=== PATIENT | female | born 1955 | race African-American/Black ===

== ENCOUNTER 2017-07-06 08:27 | Inpatient (IN) | payer MEDICAID ==
[~2017-07-06] VITALS: Ht 165.1 cm; Wt 106.6 kg
[~2017-07-06 08:27] MED LIST: ASPI81TA35 PO; HYDR25TA; METH500T PO; PRO AIR; TOPI25TA48 PO; TRAM50TA3; [UNRECOGNIZED DRUG - OTHER] PO
[2017-07-06 10:32] LABS: CLARITY URINE CLEAR (CLEAR); COLOR URINE YELLOW (YELLOW); GLUCOSE URINE NEGATIVE (NEGATIVE); KETONES URINE NEGATIVE (NEGATIVE); LEUKOCYTE ESTERASE URINE NEGATIVE (NEGATIVE); NITRITE URINE NEGATIVE (NEGATIVE); OCCULT BLOOD URINE NEGATIVE (NEGATIVE); PROTEIN URINE NEGATIVE (NEGATIVE); SPECIFIC GRAVITY URINE 1.016 (1.005-1.030)
[2017-07-06] MEDS ORDERED: CALC500T6 PO (10:49)
[2017-07-06] MEDS ORDERED: IBUP-2030 PO (10:49)
[2017-07-06] MEDS ORDERED: METF500T4 PO (10:49)
[2017-07-06] MEDS ORDERED: AMLO10TA80 PO (10:49)
[2017-07-06] MEDS ORDERED: [UNRECOGNIZED DRUG - OTHER] PO (10:49)
[2017-07-06] MEDS ORDERED: ATOR40TA70 PO (10:49)
[2017-07-06] MEDS ORDERED: ZET10 PO (10:49)
[2017-07-06] MEDS ORDERED: OMEP20TA15 PO (10:49)
[2017-07-06] MEDS: LACTATED RINGERS 1,000 ML IV SCH (11:10)
[2017-07-06] MEDS ORDERED: TRANEXAMIC ACID 1,000 MG in SODIUM CHLORIDE 0.9% 100 ML IV NR (12:15)
[2017-07-06] MEDS ORDERED: EPINEPHRINE 1:1000 1 MG/ML AMP ONE (13:12)
[2017-07-06] MEDS ORDERED: MORPHINE SULFATE/PF 1MG/ML 10ML AMP ONE (13:12)
[2017-07-06] MEDS ORDERED: NORMAL SALINE 0.9% 10 ML SYR ONE (13:12)
[2017-07-06] MEDS ORDERED: BACITRACIN 50,000 UNITS/VIAL ONE (13:13)
[2017-07-06] MEDS ORDERED: BUPIVACAINE/EPINEPHRINE/PF 0.25%/0.0005 30ML ONE (13:13)
[2017-07-06] MEDS ORDERED: FENTANYL CITRATE/PF 50MCG/ML 2ML VIAL ONE (13:32)
[2017-07-06] MEDS ORDERED: SUCCINYLCHOLINE CHLORIDE 200MG/10ML VIAL IV ONE (13:33)
[2017-07-06] MEDS ORDERED: PROPOFOL 200MG/20ML VIAL IV ONE (13:33)
[2017-07-06] MEDS ORDERED: LIDOCAINE HCL 1% 20ML VIAL (Pyxis) INJ ONE (13:33)
[2017-07-06] MEDS ORDERED: CEFAZOLIN SODIUM 1000MG/VIAL ONE (13:46)
[2017-07-06] MEDS ORDERED: MIDAZOLAM HCL 2 MG/2 ML VIAL ONE (13:59)
[2017-07-06] MEDS ORDERED: HYDROMORPHONE HCL/PF 2MG/ML (OR) ONE (14:16)
[2017-07-06] MEDS ORDERED: EPHEDRINE SULFATE 50MG/ML VIAL ONE (14:21)
[2017-07-06] MEDS ORDERED: MEPERIDINE HCL/PF 25MG/ML CPJ IV PRN (15:45)
[2017-07-06] MEDS ORDERED: LABETALOL HCL 20MG/4ML CARPUJECT IV PRN (15:45)
[2017-07-06] MEDS ORDERED: HYDROMORPHONE HCL/PF 2MG/ML CPJ IV PRN (15:45)
[2017-07-06] MEDS ORDERED: ONDANSETRON HCL 4MG/2ML VIAL IV PRN ×2 (15:45→23:00)
[2017-07-06] MEDS ORDERED: DIPHENHYDRAMINE INJ IV PRN (18:15)
[2017-07-06] MEDS ORDERED: ONDANSETRON INJ IV PRN (18:15)
[2017-07-06] MEDS ORDERED: HYDROMORPHONE PCA 10MG/50ML IV PRN (18:15)
[2017-07-06] MEDS ORDERED: NALOXONE INJ IV PRN (18:15)
[2017-07-06 22:00] VITALS: BP 136/65
[2017-07-06] MEDS ORDERED: MAGNESIUM HYDROXIDE 400MG/5ML 30ML UDC PO PRN (23:00)
[2017-07-06] MEDS ORDERED: HYDROCODONE/ACETAMINOPHEN 10/325MG TABLET PO PRN (23:00)
[2017-07-06] MEDS ORDERED: ZOLPIDEM TARTRATE 5MG TABLET PO PRN (23:00)
[2017-07-06] MEDS ORDERED: ACETAMINOPHEN 325MG TABLET PO PRN (23:00)
[2017-07-06] MEDS ORDERED: DEXTROSE 50% WATER 50ML SYRINGE IV PRN (23:45)
[2017-07-07] VITALS: BP 125/70
[2017-07-07] MEDS: HYDROCODONE/ACETAMINOPHEN 10/325MG TABLET PO PRN ×5 (00:14→20:27)
[2017-07-07] MEDS: LACTATED RINGERS 1,000 ML IV SCH (03:16)
[2017-07-07] MEDS: CEFAZOLIN 2,000 MG in DEXT 5% WATER 100 ML IV SCH ×2 (03:16→10:38)
[2017-07-07 04:00] VITALS: BP 136/65
[2017-07-07 06:18] LABS: BASOPHILS % 0.3 % (0.0-2.0); EOSINOPHILS % 0.3 % (0.0-5.0); HEMATOCRIT. 29.2 % (36.0-48.0); HEMOGLOBIN. 9.7 g/dL (12.0-16.0); LYMPHOCYTES % 13.2 % (20.0-50.0); MEAN CORPUSCULAR HEMOGLOBIN 29.5 pg (28.0-32.0); MEAN CORPUSCULAR VOLUME 88.6 fL (81.0-99.0); MEAN PLATELET VOLUME 9.4 fl (7.4-10.4); MONOCYTES % 5.8 % (2.0-8.0); NEUTROPHILS % 80.4 % (40.0-76.0); PLATELET 231 x1000/uL (130-400)
[2017-07-07 07:08] LABS: CARBON DIOXIDE 28 mEq/L (21-32); CHLORIDE 108 mEq/L (98-107)
[2017-07-07] MEDS ORDERED: BLOOD SUGAR DIAGNOSTIC STRIP TEST SCH (07:20)
[2017-07-07] MEDS ORDERED: INSULIN LISPRO 100 UNITS/ML SUBCUT SCH ×2 (07:50→12:50)
[2017-07-07 08:00] VITALS: BP_SYST 105; BP_SYST 114; BP_DIAS 57; BP_DIAS 63
[2017-07-07] MEDS ORDERED: DEXTROSE 50% WATER 50ML SYRINGE IV PRN (09:00)
[2017-07-07] MEDS: INSULIN LISPRO 100 UNITS/ML SUBCUT SCH ×5 (09:30→21:00)
[2017-07-07] MEDS: DOCUSATE SODIUM 100MG CAPSULE PO SCH ×2 (10:32→17:16)
[2017-07-07] MEDS: FERROUS SULFATE 325MG TABLET PO SCH ×3 (10:32→17:16)
[2017-07-07] MEDS: ENOXAPARIN 30MG/0.3ML SYR SUBCUT SCH ×2 (10:33→20:28)
[2017-07-07 12:00] VITALS: BP 109/58
[2017-07-07] MEDS: BLOOD SUGAR DIAGNOSTIC STRIP TEST SCH ×3 (12:37→21:00)
[2017-07-07 16:00] VITALS: BP 137/69
[2017-07-07 20:00] VITALS: BP 111/69
[2017-07-08] VITALS: BP 106/64
[2017-07-08 04:00] VITALS: BP 137/61
[2017-07-08] MEDS: HYDROCODONE/ACETAMINOPHEN 10/325MG TABLET PO PRN ×4 (04:43→20:09)
[2017-07-08 06:05] LABS: BASOPHILS % 0.3 % (0.0-2.0); EOSINOPHILS % 0.9 % (0.0-5.0); HEMOGLOBIN. 9.5 g/dL (12.0-16.0); LYMPHOCYTES % 11.2 % (20.0-50.0); MEAN CORPUSCULAR VOLUME 88.2 fL (81.0-99.0); MEAN PLATELET VOLUME 9.9 fl (7.4-10.4); MONOCYTES % 5.3 % (2.0-8.0); NEUTROPHILS % 82.3 % (40.0-76.0); PLATELET 219 x1000/uL (130-400); RED BLOOD CELL COUNT 3.18 mill/uL (4.2-5.4)
[2017-07-08] MEDS: BLOOD SUGAR DIAGNOSTIC STRIP TEST SCH ×4 (07:47→20:57)
[2017-07-08] MEDS: INSULIN LISPRO 100 UNITS/ML SUBCUT SCH ×4 (07:50→20:58)
[2017-07-08 08:00] VITALS: BP 123/60
[2017-07-08] MEDS: DOCUSATE SODIUM 100MG CAPSULE PO SCH ×2 (08:24→16:52)
[2017-07-08] MEDS: ENOXAPARIN 30MG/0.3ML SYR SUBCUT SCH ×2 (08:24→20:09)
[2017-07-08] MEDS: FERROUS SULFATE 325MG TABLET PO SCH ×3 (08:24→16:52)
[2017-07-08 12:00] VITALS: BP 110/60
[2017-07-08 16:00] VITALS: BP 134/62
[2017-07-08 20:00] VITALS: BP 140/71
[2017-07-09] VITALS: BP 118/53
[2017-07-09] MEDS: HYDROCODONE/ACETAMINOPHEN 10/325MG TABLET PO PRN ×4 (01:34→14:25)
[2017-07-09 04:00] VITALS: BP 147/68
[2017-07-09] MEDS: BLOOD SUGAR DIAGNOSTIC STRIP TEST SCH ×3 (06:32→16:55)
[2017-07-09 06:49] LABS: BASOPHILS % 0.4 % (0.0-2.0); EOSINOPHILS % 0.9 % (0.0-5.0); HEMATOCRIT. 25.8 % (36.0-48.0); HEMOGLOBIN. 8.4 g/dL (12.0-16.0); LYMPHOCYTES % 12.3 % (20.0-50.0); MEAN CORPUSCULAR HEMOGLOBIN 28.8 pg (28.0-32.0); MEAN CORPUSCULAR VOLUME 87.9 fL (81.0-99.0); MEAN PLATELET VOLUME 9.5 fl (7.4-10.4); MONOCYTES % 4.2 % (2.0-8.0); NEUTROPHILS % 82.2 % (40.0-76.0); PLATELET 228 x1000/uL (130-400); RED BLOOD CELL COUNT 2.93 mill/uL (4.2-5.4)
[2017-07-09 07:19] LABS: CARBON DIOXIDE 29 mEq/L (21-32); CHLORIDE 105 mEq/L (98-107)
[2017-07-09] MEDS: INSULIN LISPRO 100 UNITS/ML SUBCUT SCH ×3 (07:47→16:55)
[2017-07-09 08:00] VITALS: BP 124/61
[2017-07-09] MEDS: DOCUSATE SODIUM 100MG CAPSULE PO SCH ×2 (08:15→16:52)
[2017-07-09] MEDS: FERROUS SULFATE 325MG TABLET PO SCH ×3 (08:15→16:52)
[2017-07-09] MEDS: ENOXAPARIN 30MG/0.3ML SYR SUBCUT SCH (08:17)
[2017-07-09 12:00] VITALS: BP 123/62
[2017-07-09] MEDS ORDERED: POTASSIUM CHLORIDE 20MEQ TABLET SR PO NR (13:30)
[2017-07-09 16:00] VITALS: BP 114/52
[2017-07-09 16:36] VITALS: BP 123/62
[2017-07-09] MEDS ORDERED: METFORMIN HCL 500MG TABLET PO SCH (17:50)
== END 2017-07-09 20:49 | DRG 301 ==
LOC: OR 08:27 → 6EST 21:50
PROVIDERS: ADMIT Internal Medicine; ATTEND Internal Medicine
PROC: 0SR903A Replacement of Right Hip Joint with Ceramic Synthetic Substitute, Uncemented, Open Approach (ICD-10-PCS; principal; 2017-07-06 13:30)
DX: M16.11 Unilateral primary osteoarthritis, right hip (principal); E66.01 Morbid (severe) obesity due to excess calories; I10 Essential (primary) hypertension; E11.9 Type 2 diabetes mellitus without complications; D72.829 Elevated white blood cell count, unspecified; E78.5 Hyperlipidemia, unspecified; G89.29 Other chronic pain; Z68.39 Body mass index [BMI] 39.0-39.9, adult; J45.909 Unspecified asthma, uncomplicated; M21.371 Foot drop, right foot; Z79.82 Long term (current) use of aspirin; Z79.84 Long term (current) use of oral hypoglycemic drugs; Z79.899 Other long term (current) drug therapy
CPT/HCPCS: 36415; 73502; 80048; 81003; 82962; 85025; 86850; 86900; 86920; 88304; 88311; 93970; 97110; 97116; 97162; 97167; 97530; 97535; A4216; C1776; J0171; J0330; J0690; J1170; J1650; J1815; J2175; J2250; J2274; J2405; J2704; J3010; J3490; J7030; J7040; J7050; J7060; J7120

== ENCOUNTER 2017-07-18 20:05 | Emergency (ER) | payer MEDICAID ==
[~2017-07-18] VITALS: Ht 165.1 cm; Wt 108.0 kg
[~2017-07-18 20:05] MED LIST changes: +AMLO10TA80 PO; +ATOR40TA70 PO; +CALC500T6 PO; +IBUP-2030 PO; +METF500T4 PO; +OMEP20TA15 PO; +ZET10 PO; +[UNRECOGNIZED DRUG - OTHER] PO
[2017-07-18] MEDS ORDERED: MORPHINE SULFATE 4 MG/ML CPJ (NOT FOR IM USE) IV ONE (21:15)
[2017-07-18] MEDS ORDERED: ONDANSETRON HCL 4MG/2ML VIAL IV ONE (22:30)
[2017-07-19 00:35] VITALS: BP 127/69
== END 2017-07-19 00:42 | disposition home or self-care (01) ==
LOC: ER 20:05
DX: S70.01XA Contusion of right hip, initial encounter (principal); I25.10 Atherosclerotic heart disease of native coronary artery without angina pectoris; E11.9 Type 2 diabetes mellitus without complications; K21.9 Gastro-esophageal reflux disease without esophagitis; I10 Essential (primary) hypertension; Z79.82 Long term (current) use of aspirin; Z96.641 Presence of right artificial hip joint; W01.0XXA Fall on same level from slipping, tripping and stumbling without subsequent striking against object, initial encounter; Y93.89 Activity, other specified; Y92.122 Bedroom in nursing home as the place of occurrence of the external cause
CPT/HCPCS: 73502; 96374; 96375; 99284; J2270; J2405; Z7610

== ENCOUNTER 2019-07-15 11:02 | Inpatient (IN) | payer MEDICARE, MEDICAID ==
[~2019-07-15] VITALS: Ht 162.6 cm; Wt 100.7 kg
[~2019-07-15 11:02] MED LIST changes: -ASPI81TA35 PO; +ASPI81TA47 PO; +EZET10TA13 PO; +METF-414 PO; -METF500T4 PO; -ZET10 PO
[2019-07-15 12:12] LABS: BASOPHILS % 0.7 % (0.0-2.0); HEMATOCRIT. 37.2 % (36.0-48.0); HEMOGLOBIN. 12.7 g/dL (12.0-16.0); LYMPHOCYTES % 24.7 % (20.0-50.0); MEAN CORPUSCULAR HEMOGLOBIN 31.6 pg (28.0-32.0); MEAN CORPUSCULAR VOLUME 92.4 fL (81.0-99.0); MONOCYTES % 3.2 % (2.0-8.0); NEUTROPHILS % 68.4 % (40.0-76.0); PLATELET 218 x1000/uL (130-400); RED BLOOD CELL COUNT 4.02 mill/uL (4.2-5.4); RED CELL DISTRIBUTION WIDTH 14.4 % (11.6-14.6)
[2019-07-15 12:21] LABS: CHLORIDE 104 mEq/L (98-107)
[2019-07-15 14:51] LABS: *BARBITURATES SCREEN URINE NEGATIVE (NEGATIVE)
[2019-07-15 14:52] LABS: *AMPHETAMINES SCREEN URINE NEGATIVE (NEGATIVE); *COCAINE SCREEN URINE NEGATIVE (NEGATIVE); CANNABINOID URINE SCREEN NEGATIVE (NEGATIVE); OPIATES URINE SCREEN NEGATIVE (NEGATIVE); PHENCYCLIDINE URINE SCREEN NEGATIVE (NEGATIVE)
[2019-07-15 14:54] LABS: *BENZODIAZEPINES SCREEN URINE NEGATIVE (NEGATIVE); METHADONE URINE SCREEN NEGATIVE (NEGATIVE)
[2019-07-15 15:02] LABS: CLARITY URINE CLEAR (CLEAR); COLOR URINE YELLOW (YELLOW); KETONES URINE NEGATIVE (NEGATIVE); LEUKOCYTE ESTERASE URINE NEGATIVE (NEGATIVE); NITRITE URINE NEGATIVE (NEGATIVE); OCCULT BLOOD URINE NEGATIVE (NEGATIVE); PH URINE 5.5 (4.5-8.0); PROTEIN URINE NEGATIVE (NEGATIVE); SPECIFIC GRAVITY URINE 1.016 (1.005-1.030); UROBILINOGEN URINE 0.2 E.U./dL (0.2-1.0)
[2019-07-15] MEDS ORDERED: DOCUSATE SODIUM 100MG CAPSULE PO PRN (16:00)
[2019-07-15] MEDS ORDERED: HYDROCODONE/ACETAMINOPHEN 5/325MG TABLET PO PRN (16:00)
[2019-07-15] MEDS ORDERED: POTASSIUM CHLORIDE 20MEQ TABLET SR PO NR ×2 (16:00→16:30)
[2019-07-15] MEDS ORDERED: IPRATROPIUM/ALBUTEROL 0.5-3(2.5)MG/3ML NEB HHN PRN (16:00)
[2019-07-15] MEDS ORDERED: ACETAMINOPHEN 325MG TABLET PO PRN (16:00)
[2019-07-15] MEDS ORDERED: CLONIDINE 0.1MG TABLET PO PRN (16:00)
[2019-07-15] MEDS ORDERED: ONDANSETRON HCL 4MG/2ML INJ IV PRN (16:00)
[2019-07-15 18:36] VITALS: BP 145/73
[2019-07-15] MEDS: SODIUM CHLORIDE 0.9% 1,000 ML IV SCH (19:11)
[2019-07-15] MEDS ORDERED: DEXTROSE 50% WATER 50ML SYRINGE IV PRN (19:30)
[2019-07-15 20:00] VITALS: BP 98/46
[2019-07-15] MEDS: BLOOD SUGAR DIAGNOSTIC STRIP TEST SCH (21:00)
[2019-07-15] MEDS: INSULIN LISPRO 100 UNITS/ML SUBCUT SCH (21:00)
[2019-07-16] VITALS: BP 105/41
[2019-07-16 04:00] VITALS: BP 117/61
[2019-07-16] MEDS: BLOOD SUGAR DIAGNOSTIC STRIP TEST SCH (07:40)
[2019-07-16 08:00] VITALS: BP 116/65
[2019-07-16] MEDS: INSULIN LISPRO 100 UNITS/ML SUBCUT SCH (08:10)
[2019-07-16 08:47] LABS: BASOPHILS % 0.8 % (0.0-2.0); EOSINOPHILS % 3.9 % (0.0-5.0); HEMATOCRIT. 37.2 % (36.0-48.0); HEMOGLOBIN. 12.4 g/dL (12.0-16.0); LYMPHOCYTES % 34.3 % (20.0-50.0); MEAN CORPUSCULAR HEMOGLOBIN 31.1 pg (28.0-32.0); MEAN CORPUSCULAR VOLUME 93.5 fL (81.0-99.0); MEAN PLATELET VOLUME 9.3 fl (7.4-10.4); MONOCYTES % 4.1 % (2.0-8.0); NEUTROPHILS % 56.9 % (40.0-76.0); PLATELET 209 x1000/uL (130-400); RED BLOOD CELL COUNT 3.97 mill/uL (4.2-5.4); RED CELL DISTRIBUTION WIDTH 14.6 % (11.6-14.6)
[2019-07-16 08:53] LABS: CHLORIDE 110 mEq/L (98-107)
[2019-07-16 08:58] LABS: PHOSPHORUS 2.9 mg/dL (2.5-4.9)
[2019-07-16] MEDS: SODIUM CHLORIDE 0.9% 1,000 ML IV SCH (08:58)
[2019-07-16 08:59] LABS: LDL CHOLESTEROL 79 mg/dL (5-100)
[2019-07-16 09:01] LABS: HDL CHOLESTEROL 57 mg/dL (40-59)
[2019-07-16 11:35] VITALS: BP 123/65
== END 2019-07-16 12:16 | disposition home or self-care (01) | DRG 149 ==
LOC: ER 14:42 → 7WST 14:49 → EDBEDREQ 14:53 → EDBEDREQSVC 14:53 → EDBEDREQTM 14:53 → ENRESERV 14:58
PROVIDERS: ADMIT Internal Medicine; ATTEND Internal Medicine
DX: H81.10 Benign paroxysmal vertigo, unspecified ear (principal); E87.2 Acidosis; J44.9 Chronic obstructive pulmonary disease, unspecified; I10 Essential (primary) hypertension; E78.5 Hyperlipidemia, unspecified; G89.29 Other chronic pain; M54.9 Dorsalgia, unspecified; I25.10 Atherosclerotic heart disease of native coronary artery without angina pectoris; I49.9 Cardiac arrhythmia, unspecified; K21.9 Gastro-esophageal reflux disease without esophagitis; E87.6 Hypokalemia; I50.9 Heart failure, unspecified; I11.0 Hypertensive heart disease with heart failure; M13.0 Polyarthritis, unspecified; H55.09 Other forms of nystagmus; Z96.649 Presence of unspecified artificial hip joint; Z79.82 Long term (current) use of aspirin
CPT/HCPCS: 36415; 71045; 80048; 80061; 80305; 81003; 82962; 83036; 83605; 83735; 83880; 84100; 84484; 93005; 99285; A6261

== ENCOUNTER 2021-04-06 16:07 | Emergency (ER) | payer MEDICARE, MEDICAID ==
[~2021-04-06] VITALS: Ht 165.1 cm; Wt 103.0 kg
[2021-04-06 16:40] VITALS: BP 141/79
== END 2021-04-06 18:15 | disposition home or self-care (01) ==
LOC: ER 17:10
DX: M25.562 Pain in left knee (principal); I25.10 Atherosclerotic heart disease of native coronary artery without angina pectoris; K59.00 Constipation, unspecified; K21.9 Gastro-esophageal reflux disease without esophagitis; E78.00 Pure hypercholesterolemia, unspecified; I49.9 Cardiac arrhythmia, unspecified; I10 Essential (primary) hypertension; Z87.440 Personal history of urinary (tract) infections; Z79.899 Other long term (current) drug therapy
CPT/HCPCS: 73562; 99283; L1830

== ENCOUNTER 2021-12-17 19:15 | Inpatient (IN) | payer MEDICARE, OTHER ==
[~2021-12-17] VITALS: Ht 165.1 cm; Wt 97.2 kg
[2021-12-17] MEDS ORDERED: ASPIRIN 81MG TABLET PO ONE (19:45)
[2021-12-17] MEDS ORDERED: IPRATROPIUM BROMIDE (0.02%) 0.5MG/2.5ML NEB HHN STA (19:45)
[2021-12-17] MEDS ORDERED: NITROGLYCERIN 0.4MG TABLET SL SL PRN (19:45)
[2021-12-17] MEDS ORDERED: METHYLPREDNISOLONE SOD SUCC 125 MG/2 ML VIAL IV STA (19:45)
[2021-12-17] MEDS ORDERED: ALBUTEROL (0.083%) 2.5MG/3ML NEB HHN STA (19:45)
[2021-12-17 20:26] LABS: BASOPHILS % 0.9 % (0.0-2.0); EOSINOPHILS % 1.6 % (0.0-5.0); HEMOGLOBIN. 9.5 g/dL (12.0-16.0); LYMPHOCYTES % 32.1 % (20.0-50.0); MEAN CORPUSCULAR HEMOGLOBIN 24.6 pg (28.0-32.0); MEAN PLATELET VOLUME 9.1 fl (7.4-10.4); NEUTROPHILS % 62.4 % (40.0-76.0); PLATELET 276 x1000/uL (130-400); RED BLOOD CELL COUNT 3.85 mill/uL (4.2-5.4); RED CELL DISTRIBUTION WIDTH 22.4 % (11.6-14.6)
[2021-12-17 20:32] LABS: CHLORIDE 113 mEq/L (98-107)
[2021-12-17 20:48] LABS: PLATELET ESTIMATE NORMAL
[2021-12-17] MEDS ORDERED: ENOXAPARIN 80MG/0.8ML SYR SUBCUT ONE (21:45)
[2021-12-17] MEDS ORDERED: FUROSEMIDE 40MG/4ML VIAL IVP ONE (21:45)
[2021-12-18] VITALS (12 sets, daily range): BP systolic 105–170; BP diastolic 51–98
[2021-12-18] MEDS ORDERED: ACETAMINOPHEN 325MG TABLET PO PRN (03:30)
[2021-12-18] MEDS ORDERED: ONDANSETRON HCL 4MG/2ML INJ IV PRN (03:30)
[2021-12-18] MEDS ORDERED: HYDROCODONE/ACETAMINOPHEN 5/325MG TABLET PO PRN (03:30)
[2021-12-18] MEDS ORDERED: DEXTROSE 50% WATER 50ML SYRINGE IV PRN (03:30)
[2021-12-18] MEDS: BLOOD SUGAR DIAGNOSTIC STRIP TEST SCH ×4 (06:42→21:00)
[2021-12-18] MEDS: INSULIN LISPRO 100 UNITS/ML SUBCUT SCH ×4 (07:20→21:00)
[2021-12-18] MEDS: FUROSEMIDE 40MG/4ML VIAL IVP SCH ×2 (09:00→21:00)
[2021-12-18 09:15] LABS: *AMPHETAMINES SCREEN URINE NEGATIVE (NEGATIVE); *BARBITURATES SCREEN URINE NEGATIVE (NEGATIVE); *BENZODIAZEPINES SCREEN URINE NEGATIVE (NEGATIVE); *COCAINE SCREEN URINE NEGATIVE (NEGATIVE); METHADONE URINE SCREEN NEGATIVE (NEGATIVE); OPIATES URINE SCREEN PRESUMTIVE POSITIVE (NEGATIVE); PHENCYCLIDINE URINE SCREEN NEGATIVE (NEGATIVE)
[2021-12-18 09:18] LABS: CANNABINOID URINE SCREEN NEGATIVE (NEGATIVE)
[2021-12-18 10:24] LABS: HEMATOCRIT. 31.3 % (36.0-48.0); HEMOGLOBIN. 9.9 g/dL (12.0-16.0); MEAN CORPUSCULAR HEMOGLOBIN 24.6 pg (28.0-32.0); MEAN CORPUSCULAR VOLUME 77.6 fL (81.0-99.0); MEAN PLATELET VOLUME 9.7 fl (7.4-10.4); PLATELET 306 x1000/uL (130-400); RED BLOOD CELL COUNT 4.03 mill/uL (4.2-5.4); RED CELL DISTRIBUTION WIDTH 22.3 % (11.6-14.6)
[2021-12-18 10:31] LABS: CHLORIDE 108 mEq/L (98-107)
[2021-12-18 10:41] LABS: LDL CHOLESTEROL 97 mg/dL (5-100)
[2021-12-18 10:42] LABS: HDL CHOLESTEROL 84 mg/dL (40-59)
[2021-12-18] MEDS: ASPIRIN 81MG TABLET PO SCH (11:10)
[2021-12-18] MEDS ORDERED: HYDROCODONE/APAP 7.5/325MG 1 TAB TABLET PO PRN (13:15)
[2021-12-18 16:04] LABS: T4 FREE 1.03 ng/dL (0.76-1.46)
[2021-12-18 16:07] LABS: CREATINE KINASE MB FRACTION 1.8 ng/mL (0.5-3.6)
[2021-12-18] MEDS: ENOXAPARIN 100MG/ML SYR SUBCUT SCH ×2 (16:31→21:00)
[2021-12-18 20:12] LABS: PLATELET ESTIMATE NORMAL
[2021-12-18] MEDS ORDERED: ATORVASTATIN CALCIUM 40MG TABLET PO SCH (21:00)
[2021-12-18] MEDS: ATORVASTATIN CALCIUM 20MG TABLET PO SCH (21:51)
[2021-12-19] VITALS (10 sets, daily range): BP systolic 98–159; BP diastolic 32–89
[2021-12-19 00:10] LABS: CREATINE KINASE MB FRACTION 2.3 ng/mL (0.5-3.6)
[2021-12-19] MEDS: BLOOD SUGAR DIAGNOSTIC STRIP TEST SCH ×4 (06:50→21:14)
[2021-12-19 07:19] LABS: BASOPHILS % 0.7 % (0.0-2.0); EOSINOPHILS % 0.8 % (0.0-5.0); HEMATOCRIT. 31.1 % (36.0-48.0); HEMOGLOBIN. 9.9 g/dL (12.0-16.0); LYMPHOCYTES % 26.2 % (20.0-50.0); MEAN CORPUSCULAR HEMOGLOBIN 24.8 pg (28.0-32.0); MEAN CORPUSCULAR VOLUME 77.7 fL (81.0-99.0); MEAN PLATELET VOLUME 9.7 fl (7.4-10.4); MONOCYTES % 4.9 % (2.0-8.0); NEUTROPHILS % 67.4 % (40.0-76.0); PLATELET 263 x1000/uL (130-400); RED BLOOD CELL COUNT 4.01 mill/uL (4.2-5.4); RED CELL DISTRIBUTION WIDTH 23.1 % (11.6-14.6)
[2021-12-19] MEDS: INSULIN LISPRO 100 UNITS/ML SUBCUT SCH ×4 (07:20→21:00)
[2021-12-19 07:24] LABS: CHLORIDE 109 mEq/L (98-107)
[2021-12-19 07:30] LABS: TOTAL IRON BINDING CAPACITY 356 ug/dL (250-450)
[2021-12-19 07:32] LABS: CREATINE KINASE 236 IU/L (26-192)
[2021-12-19 07:35] LABS: CREATINE KINASE MB FRACTION 2.2 ng/mL (0.5-3.6)
[2021-12-19] MEDS ORDERED: ACETAMINOPHEN 325MG TABLET PO PRN (09:00)
[2021-12-19] MEDS: ENOXAPARIN 100MG/ML SYR SUBCUT SCH ×2 (09:00→21:00)
[2021-12-19] MEDS ORDERED: ATROPINE SULFATE 1MG/10ML SYR IV PRN (09:00)
[2021-12-19] MEDS ORDERED: MORPHINE SULFATE 2 MG/ML CPJ (NOT FOR IM USE) IV PRN (09:00)
[2021-12-19] MEDS: FUROSEMIDE 40MG/4ML VIAL IVP SCH ×2 (09:00→21:59)
[2021-12-19] MEDS: ASPIRIN 81MG TABLET PO SCH (09:00)
[2021-12-19] MEDS ORDERED: HEPARIN SODIUM 1,000 UNIT/1ML VIAL IV ONE (09:31)
[2021-12-19] MEDS ORDERED: PHENYLEPHRINE 100MCG/ML 10ML VIAL (CATH LAB) IV ONE (09:31)
[2021-12-19] MEDS ORDERED: NITROGLYCERIN 50MCG/ML 10ML VIAL (CATH LAB) IV ONE (09:31)
[2021-12-19] MEDS ORDERED: SODIUM CHLORIDE 0.45% 1,000 ML IV SCH (10:00)
[2021-12-19] MEDS ORDERED: POTASSIUM CHLORIDE INJ 40 MEQ in DEXT 5% WATER 250 ML IV NR (11:30)
[2021-12-19] MEDS: ATORVASTATIN CALCIUM 20MG TABLET PO SCH (21:00)
[2021-12-19] MEDS: HYDROCODONE/ACETAMINOPHEN 5/325MG TABLET PO PRN (22:02)
[2021-12-20] VITALS (9 sets, daily range): BP systolic 105–153; BP diastolic 56–86
[2021-12-20] MEDS: HYDROCODONE/ACETAMINOPHEN 5/325MG TABLET PO PRN (05:09)
[2021-12-20] MEDS: IPRATROPIUM/ALBUTEROL 0.5-3(2.5)MG/3ML NEB HHN PRN ×2 (05:33→09:42)
[2021-12-20] MEDS: BLOOD SUGAR DIAGNOSTIC STRIP TEST SCH ×2 (06:04→11:56)
[2021-12-20] MEDS: INSULIN LISPRO 100 UNITS/ML SUBCUT SCH ×2 (07:20→11:56)
[2021-12-20 08:09] LABS: CHLORIDE 110 mEq/L (98-107)
[2021-12-20 08:22] LABS: BASOPHILS % 0.7 % (0.0-2.0); EOSINOPHILS % 3.5 % (0.0-5.0); HEMATOCRIT. 28.7 % (36.0-48.0); HEMOGLOBIN. 9.2 g/dL (12.0-16.0); LYMPHOCYTES % 31.9 % (20.0-50.0); MEAN CORPUSCULAR HEMOGLOBIN 24.8 pg (28.0-32.0); MEAN CORPUSCULAR VOLUME 77.5 fL (81.0-99.0); MEAN PLATELET VOLUME 9.2 fl (7.4-10.4); MONOCYTES % 4.4 % (2.0-8.0); NEUTROPHILS % 59.5 % (40.0-76.0); PLATELET 236 x1000/uL (130-400); RED BLOOD CELL COUNT 3.71 mill/uL (4.2-5.4); RED CELL DISTRIBUTION WIDTH 22.9 % (11.6-14.6)
[2021-12-20] MEDS: FUROSEMIDE 40MG/4ML VIAL IVP SCH (08:43)
[2021-12-20] MEDS: ENOXAPARIN 100MG/ML SYR SUBCUT SCH (08:43)
[2021-12-20] MEDS: ASPIRIN 81MG TABLET PO SCH (08:43)
== END 2021-12-20 14:17 | disposition home or self-care (01) | DRG 280 ==
LOC: ER 19:15 → 3WST 21:44 → ENRESERV 23:09
PROVIDERS: ADMIT Internal Medicine; ATTEND Internal Medicine
PROC: 4A023N7 Measurement of Cardiac Sampling and Pressure, Left Heart, Percutaneous Approach (ICD-10-PCS; principal; 2021-12-19)
PROC: B2111ZZ Fluoroscopy of Multiple Coronary Arteries using Low Osmolar Contrast (ICD-10-PCS; 2021-12-19)
PROC: B2151ZZ Fluoroscopy of Left Heart using Low Osmolar Contrast (ICD-10-PCS; 2021-12-19)
DX: I21.4 Non-ST elevation (NSTEMI) myocardial infarction (principal); J96.00 Acute respiratory failure, unspecified whether with hypoxia or hypercapnia; I50.43 Acute on chronic combined systolic (congestive) and diastolic (congestive) heart failure; E87.0 Hyperosmolality and hypernatremia; J44.1 Chronic obstructive pulmonary disease with (acute) exacerbation; I31.3 Pericardial effusion (noninflammatory); J84.9 Interstitial pulmonary disease, unspecified; E78.5 Hyperlipidemia, unspecified; E87.6 Hypokalemia; I11.0 Hypertensive heart disease with heart failure; D50.9 Iron deficiency anemia, unspecified; E11.65 Type 2 diabetes mellitus with hyperglycemia; M54.50 Low back pain, unspecified; I25.119 Atherosclerotic heart disease of native coronary artery with unspecified angina pectoris; M19.90 Unspecified osteoarthritis, unspecified site; R74.01 Elevation of levels of liver transaminase levels; K21.9 Gastro-esophageal reflux disease without esophagitis; Z20.822 Contact with and (suspected) exposure to COVID-19; I50.813 Acute on chronic right heart failure; E78.00 Pure hypercholesterolemia, unspecified; G89.29 Other chronic pain; L40.9 Psoriasis, unspecified; Z96.641 Presence of right artificial hip joint; Z98.42 Cataract extraction status, left eye; Z98.41 Cataract extraction status, right eye; Z87.891 Personal history of nicotine dependence; Z79.891 Long term (current) use of opiate analgesic; Z79.82 Long term (current) use of aspirin; Z79.899 Other long term (current) drug therapy; Z87.440 Personal history of urinary (tract) infections
CPT/HCPCS: 36415; 71045; 71275; 80048; 80053; 80061; 80305; 82550; 82553; 82728; 82962; 83036; 83540; 83550; 83880; 84439; 84443; 84484; 85025; 85379; 87426; 93005; 93306; 93458; 93970; 94640; 94644; 99291; C1769; C1887; C1893; J1644; J1650; J1815; J1940; J2370; J2930; J3480; J3490; J7060

== ENCOUNTER 2022-05-27 12:10 | Inpatient (IN) | payer MEDICARE, MEDICAID ==
[~2022-05-27] VITALS: Ht 165.1 cm; Wt 92.5 kg
[~2022-05-27 12:10] MED LIST changes: -EZET10TA13 PO; -IBUP-2030 PO; -METF-414 PO
[2022-05-27 14:46] LABS: BASOPHILS % 0.6 % (0.0-2.0); HEMATOCRIT. 40.8 % (36.0-48.0); HEMOGLOBIN. 13.7 g/dL (12.0-16.0); LYMPHOCYTES % 17.1 % (20.0-50.0); MEAN CORPUSCULAR HEMOGLOBIN 31.1 pg (28.0-32.0); MEAN CORPUSCULAR VOLUME 92.3 fL (81.0-99.0); MEAN PLATELET VOLUME 9.5 fl (7.4-10.4); MONOCYTES % 4.9 % (2.0-8.0); NEUTROPHILS % 75.4 % (40.0-76.0); PLATELET 273 x1000/uL (130-400); RED BLOOD CELL COUNT 4.42 mill/uL (4.2-5.4); RED CELL DISTRIBUTION WIDTH 16.4 % (11.6-14.6)
[2022-05-27 14:51] LABS: CHLORIDE 105 mEq/L (98-107)
[2022-05-27] MEDS ORDERED: ASPIRIN 81MG TABLET PO ONE (17:00)
[2022-05-27] MEDS: HYDROCODONE/ACETAMINOPHEN 5/325MG TABLET PO PRN ×2 (17:51→22:42)
[2022-05-27] MEDS ORDERED: HYDROCODONE/ACETAMINOPHEN 5/325MG TABLET PO PRN (18:30)
[2022-05-27] MEDS ORDERED: DOCUSATE SODIUM 100MG CAPSULE PO PRN (18:30)
[2022-05-27] MEDS ORDERED: ONDANSETRON HCL 4MG/2ML INJ IV PRN (18:30)
[2022-05-27] MEDS ORDERED: ACETAMINOPHEN 325MG TABLET PO PRN ×2 (18:30)
[2022-05-27] MEDS ORDERED: CLONIDINE 0.1MG TABLET PO PRN (18:30)
[2022-05-27] MEDS ORDERED: IPRATROPIUM/ALBUTEROL 0.5-3(2.5)MG/3ML NEB HHN PRN (18:30)
[2022-05-27] MEDS ORDERED: LORAZEPAM 0.5MG TABLET PO PRN (18:30)
[2022-05-27 21:23] LABS: *AMPHETAMINES SCREEN URINE NEGATIVE (NEGATIVE); *BARBITURATES SCREEN URINE NEGATIVE (NEGATIVE); *BENZODIAZEPINES SCREEN URINE NEGATIVE (NEGATIVE); *COCAINE SCREEN URINE NEGATIVE (NEGATIVE); CANNABINOID URINE SCREEN PRESUMTIVE POSITIVE (NEGATIVE); METHADONE URINE SCREEN NEGATIVE (NEGATIVE); OPIATES URINE SCREEN NEGATIVE (NEGATIVE); PHENCYCLIDINE URINE SCREEN NEGATIVE (NEGATIVE)
[2022-05-27 23:00] VITALS: BP 132/52
[2022-05-28] VITALS: BP_SYST 138; BP_DIAS 60; BP_DIAS 83
[2022-05-28] MEDS ORDERED: OXYC-662 PO (01:31)
[2022-05-28] MEDS ORDERED: EZET-55 PO (01:31)
[2022-05-28] MEDS ORDERED: CELE100C97 PO (01:31)
[2022-05-28] MEDS ORDERED: APRE30TA2 PO (01:31)
[2022-05-28 04:00] VITALS: BP 147/81
[2022-05-28 07:39] LABS: BASOPHILS % 0.7 % (0.0-2.0); EOSINOPHILS % 3.7 % (0.0-5.0); HEMATOCRIT. 37.9 % (36.0-48.0); HEMOGLOBIN. 12.6 g/dL (12.0-16.0); MEAN CORPUSCULAR HEMOGLOBIN 30.9 pg (28.0-32.0); MEAN CORPUSCULAR VOLUME 92.7 fL (81.0-99.0); MEAN PLATELET VOLUME 9.5 fl (7.4-10.4); MONOCYTES % 5.5 % (2.0-8.0); NEUTROPHILS % 57.1 % (40.0-76.0); PLATELET 234 x1000/uL (130-400); RED BLOOD CELL COUNT 4.09 mill/uL (4.2-5.4)
[2022-05-28 07:50] LABS: CHLORIDE 109 mEq/L (98-107)
[2022-05-28 08:00] VITALS: BP 147/71
[2022-05-28] MEDS: HYDROCODONE/ACETAMINOPHEN 5/325MG TABLET PO PRN (11:43)
[2022-05-28 12:00] VITALS: BP 160/86
[2022-05-28] MEDS ORDERED: CALCIUM CARBONATE 500MG TABLET CHEW PO SCH (13:15)
[2022-05-28] MEDS: CELECOXIB 100MG CAPSULE PO SCH (14:51)
[2022-05-28] MEDS: ASPIRIN 81MG EC TABLET PO SCH (14:51)
[2022-05-28] MEDS: HYDROCHLOROTHIAZIDE 25MG TABLET PO SCH (14:52)
[2022-05-28] MEDS: OXYCODONE HCL 5MG TABLET PO PRN (15:43)
[2022-05-28 16:00] VITALS: BP 134/78
[2022-05-28] MEDS ORDERED: NALOXONE HCL 0.4MG/ML VIAL IV PRN (19:45)
[2022-05-28 20:00] VITALS: BP 123/76
[2022-05-28] MEDS ORDERED: ATORVASTATIN CALCIUM 40MG TABLET PO SCH (21:00)
[2022-05-29] VITALS: BP 121/72
[2022-05-29 04:00] VITALS: BP 136/69
[2022-05-29] MEDS: OXYCODONE HCL 5MG TABLET PO PRN (06:57)
[2022-05-29 08:00] VITALS: BP 145/70
[2022-05-29] MEDS ORDERED: AMLODIPINE 10MG TABLET PO SCH (09:00)
[2022-05-29] MEDS ORDERED: TOPIRAMATE 25MG TABLET PO SCH (09:00)
[2022-05-29] MEDS: CELECOXIB 100MG CAPSULE PO SCH (09:25)
[2022-05-29] MEDS: HYDROCHLOROTHIAZIDE 25MG TABLET PO SCH (09:25)
[2022-05-29] MEDS: ASPIRIN 81MG EC TABLET PO SCH (09:25)
[2022-05-29 12:00] VITALS: BP 129/70
[2022-05-29 15:11] VITALS: BP 129/70
[2022-05-29 16:00] VITALS: BP 152/78
== END 2022-05-29 17:35 | disposition home or self-care (01) | DRG 281 ==
LOC: ER 12:10 → 8WST 17:33 → EDBEDREQ 17:43 → EDBEDREQTM 17:43 → ENRESERV 19:42
PROVIDERS: ADMIT Internal Medicine; ATTEND Internal Medicine
DX: I21.4 Non-ST elevation (NSTEMI) myocardial infarction (principal); I50.22 Chronic systolic (congestive) heart failure; J44.1 Chronic obstructive pulmonary disease with (acute) exacerbation; Z20.822 Contact with and (suspected) exposure to COVID-19; E78.5 Hyperlipidemia, unspecified; I11.0 Hypertensive heart disease with heart failure; I25.10 Atherosclerotic heart disease of native coronary artery without angina pectoris; M19.90 Unspecified osteoarthritis, unspecified site; E11.9 Type 2 diabetes mellitus without complications; R07.89 Other chest pain; K21.9 Gastro-esophageal reflux disease without esophagitis; E78.00 Pure hypercholesterolemia, unspecified; Z96.649 Presence of unspecified artificial hip joint; Z79.899 Other long term (current) drug therapy
CPT/HCPCS: 36415; 71045; 76604; 80048; 80053; 80305; 83880; 84484; 85025; 87426; 93005; 93306; 93880; 99291

== ENCOUNTER 2022-12-23 13:47 | Inpatient (IN) | payer MEDICARE, MEDICAID ==
[~2022-12-23] VITALS: Ht 170.2 cm; Wt 101.4 kg
[~2022-12-23 13:47] MED LIST changes: +APRE30TA4 PO; +CELE100C97 PO; +EZET-55 PO; +OXYC-662 PO
[2022-12-23 14:19] LABS: BASOPHILS % 0.5 % (0.0-2.0); EOSINOPHILS % 0.8 % (0.0-5.0); HEMATOCRIT. 35.2 % (36.0-48.0); HEMOGLOBIN. 11.8 g/dL (12.0-16.0); LYMPHOCYTES % 13.3 % (20.0-50.0); MEAN CORPUSCULAR HEMOGLOBIN 31.2 pg (28.0-32.0); MEAN CORPUSCULAR VOLUME 92.9 fL (81.0-99.0); MEAN PLATELET VOLUME 8.9 fl (7.4-10.4); NEUTROPHILS % 80.4 % (40.0-76.0); PLATELET 323 x1000/uL (130-400); RED BLOOD CELL COUNT 3.78 mill/uL (4.2-5.4); RED CELL DISTRIBUTION WIDTH 15.6 % (11.6-14.6)
[2022-12-23 14:33] LABS: CHLORIDE 105 mEq/L (98-107)
[2022-12-23 15:04] LABS: PROTHROMBIN TIME 11.2 sec (9.6-11.0)
[2022-12-23 15:28] LABS: CLARITY URINE CLEAR (CLEAR); COLOR URINE DARK YELLOW (YELLOW); KETONES URINE TRACE (NEGATIVE); LEUKOCYTE ESTERASE URINE 1+ (NEGATIVE); NITRITE URINE NEGATIVE (NEGATIVE); OCCULT BLOOD URINE NEGATIVE (NEGATIVE); PH URINE 6.5 (4.5-8.0); PROTEIN URINE 1+ (NEGATIVE); SPECIFIC GRAVITY URINE 1.018 (1.005-1.030)
[2022-12-23] MEDS: FUROSEMIDE 40MG TABLET PO SCH (16:00)
[2022-12-23] MEDS ORDERED: ASPIRIN 325MG EC TABLET PO ONE (16:00)
[2022-12-23] MEDS ORDERED: ONDANSETRON HCL 4MG/2ML INJ IV PRN (18:00)
[2022-12-23] MEDS ORDERED: CLONIDINE 0.1MG TABLET PO PRN (18:00)
[2022-12-23] MEDS ORDERED: IPRATROPIUM/ALBUTEROL 0.5-3(2.5)MG/3ML NEB HHN PRN (18:00)
[2022-12-23] MEDS ORDERED: DOCUSATE SODIUM 100MG CAPSULE PO PRN (18:00)
[2022-12-23] MEDS ORDERED: ACETAMINOPHEN 325MG TABLET PO PRN ×2 (18:00)
[2022-12-23] MEDS ORDERED: LORAZEPAM 0.5MG TABLET PO PRN (18:00)
[2022-12-23] MEDS: HYDROCODONE/ACETAMINOPHEN 5/325MG TABLET PO PRN (20:42)
[2022-12-23 23:15] VITALS: BP 125/83
[2022-12-24] MEDS ORDERED: POTASSIUM CHLORIDE 20MEQ TABLET SR PO NR ×3 (03:00→09:00)
[2022-12-24 04:00] VITALS: BP 135/73
[2022-12-24] MEDS: HYDROCODONE/ACETAMINOPHEN 5/325MG TABLET PO PRN ×2 (06:03→11:43)
[2022-12-24 06:57] LABS: BASOPHILS % 0.7 % (0.0-2.0); EOSINOPHILS % 1.1 % (0.0-5.0); HEMATOCRIT. 31.2 % (36.0-48.0); HEMOGLOBIN. 10.8 g/dL (12.0-16.0); MEAN CORPUSCULAR HEMOGLOBIN 32.3 pg (28.0-32.0); MEAN CORPUSCULAR VOLUME 93.4 fL (81.0-99.0); MEAN PLATELET VOLUME 9.5 fl (7.4-10.4); MONOCYTES % 7.5 % (2.0-8.0); NEUTROPHILS % 71.7 % (40.0-76.0); PLATELET 277 x1000/uL (130-400); RED BLOOD CELL COUNT 3.34 mill/uL (4.2-5.4); RED CELL DISTRIBUTION WIDTH 15.9 % (11.6-14.6)
[2022-12-24 07:01] LABS: CHLORIDE 106 mEq/L (98-107)
[2022-12-24 08:00] VITALS: BP 129/68
[2022-12-24] MEDS ORDERED: NALOXONE HCL 0.4MG/ML VIAL IV PRN (08:45)
[2022-12-24 09:02] LABS: T4 FREE 1.27 ng/dL (0.76-1.46)
[2022-12-24 09:06] LABS: *AMPHETAMINES SCREEN URINE NEGATIVE (NEGATIVE); *BARBITURATES SCREEN URINE NEGATIVE (NEGATIVE); *BENZODIAZEPINES SCREEN URINE NEGATIVE (NEGATIVE); *COCAINE SCREEN URINE NEGATIVE (NEGATIVE); CANNABINOID URINE SCREEN PRESUMTIVE POSITIVE (NEGATIVE); METHADONE URINE SCREEN NEGATIVE (NEGATIVE); OPIATES URINE SCREEN PRESUMTIVE POSITIVE (NEGATIVE); PHENCYCLIDINE URINE SCREEN NEGATIVE (NEGATIVE)
[2022-12-24] MEDS: APIXABAN 5 MG TABLET PO SCH ×2 (10:03→16:41)
[2022-12-24] MEDS: CEFTRIAXONE 1,000 MG in DEXTROSE 5% WATER 50 ML IV SCH (10:03)
[2022-12-24] MEDS: FUROSEMIDE 40MG TABLET PO SCH (10:03)
[2022-12-24] MEDS ORDERED: GUAIFENESIN-DM 200MG-20MG/10ML UDC PO PRN (11:15)
[2022-12-24 12:00] VITALS: BP 136/73
[2022-12-24 16:00] VITALS: BP 104/69
[2022-12-24] MEDS ORDERED: FLUT1DIS3 INH (16:21)
[2022-12-24] MEDS: PREDNISONE 20MG TABLET PO SCH (16:55)
[2022-12-24 18:14] LABS: CHLORIDE 102 mEq/L (98-107)
[2022-12-24 18:26] LABS: CREATINE KINASE 235 IU/L (26-192); CREATINE KINASE MB FRACTION 2.6 ng/mL (0.5-3.6)
[2022-12-24 20:00] VITALS: BP 129/73
[2022-12-24] MEDS: BUDESONIDE 0.5MG/2ML NEB HHN SCH (21:30)
[2022-12-24] MEDS: IPRATROPIUM BROMIDE (0.02%) 0.5MG/2.5ML NEB HHN SCH (21:37)
[2022-12-24 23:45] LABS: CREATINE KINASE MB FRACTION 2.9 ng/mL (0.5-3.6)
[2022-12-25 00:03] VITALS: BP 114/83
[2022-12-25] MEDS: IPRATROPIUM BROMIDE (0.02%) 0.5MG/2.5ML NEB HHN SCH ×4 (01:57→20:42)
[2022-12-25 04:00] VITALS: BP 126/74
[2022-12-25 07:12] LABS: CREATINE KINASE MB FRACTION 2.6 ng/mL (0.5-3.6)
[2022-12-25 08:00] VITALS: BP 131/77
[2022-12-25] MEDS: BUDESONIDE 0.5MG/2ML NEB HHN SCH ×2 (09:27→20:41)
[2022-12-25] MEDS: CEFTRIAXONE 1,000 MG in DEXTROSE 5% WATER 50 ML IV SCH (09:30)
[2022-12-25] MEDS: PREDNISONE 20MG TABLET PO SCH (09:30)
[2022-12-25] MEDS: FUROSEMIDE 40MG TABLET PO SCH (09:31)
[2022-12-25] MEDS: APIXABAN 5 MG TABLET PO SCH ×2 (09:31→16:54)
[2022-12-25] MEDS ORDERED: DIGOXIN 500MCG/2ML AMP IV NR (10:30)
[2022-12-25] MEDS: LOSARTAN POTASSIUM 25 MG TABLET PO SCH (10:55)
[2022-12-25 16:00] VITALS: BP 129/67
[2022-12-25] MEDS: HYDROCODONE/ACETAMINOPHEN 5/325MG TABLET PO PRN (17:07)
[2022-12-25 20:00] VITALS: BP 145/85
[2022-12-25] MEDS: METOPROLOL TARTRATE 50MG TABLET PO SCH (21:46)
[2022-12-26] VITALS (8 sets, daily range): BP systolic 112–139; BP diastolic 51–71
[2022-12-26] MEDS: IPRATROPIUM BROMIDE (0.02%) 0.5MG/2.5ML NEB HHN SCH ×2 (01:40→08:56)
[2022-12-26] MEDS: BUDESONIDE 0.5MG/2ML NEB HHN SCH (08:56)
[2022-12-26] MEDS: APIXABAN 5 MG TABLET PO SCH (10:04)
[2022-12-26] MEDS: CEFTRIAXONE 1,000 MG in DEXTROSE 5% WATER 50 ML IV SCH (10:04)
[2022-12-26] MEDS: LOSARTAN POTASSIUM 25 MG TABLET PO SCH (10:05)
[2022-12-26] MEDS: METOPROLOL TARTRATE 50MG TABLET PO SCH (10:05)
[2022-12-26] MEDS: FUROSEMIDE 40MG TABLET PO SCH (10:05)
[2022-12-26] MEDS: PREDNISONE 20MG TABLET PO SCH (10:06)
[2022-12-26] MEDS ORDERED: APIX5TAB PO (12:07)
[2022-12-26] MEDS ORDERED: METO-539 PO (12:07)
[2022-12-26] MEDS ORDERED: P20 PO (12:07)
[2022-12-26] MEDS ORDERED: FURO40TA5 PO (12:07)
[2022-12-26] MEDS ORDERED: LOSA25TA3 PO (12:07)
[2022-12-26] MEDS: HYDROCODONE/ACETAMINOPHEN 5/325MG TABLET PO PRN (14:45)
== END 2022-12-26 15:25 | disposition home or self-care (01) | DRG 291 ==
LOC: ER 13:47 → 3WST 16:38
PROVIDERS: ADMIT Internal Medicine; ATTEND Internal Medicine
DX: I11.0 Hypertensive heart disease with heart failure (principal); I50.21 Acute systolic (congestive) heart failure; J96.00 Acute respiratory failure, unspecified whether with hypoxia or hypercapnia; J44.1 Chronic obstructive pulmonary disease with (acute) exacerbation; I42.9 Cardiomyopathy, unspecified; E11.9 Type 2 diabetes mellitus without complications; E78.00 Pure hypercholesterolemia, unspecified; I25.10 Atherosclerotic heart disease of native coronary artery without angina pectoris; E87.6 Hypokalemia; I48.91 Unspecified atrial fibrillation; M19.90 Unspecified osteoarthritis, unspecified site; G56.00 Carpal tunnel syndrome, unspecified upper limb; E78.5 Hyperlipidemia, unspecified; K21.9 Gastro-esophageal reflux disease without esophagitis; M48.00 Spinal stenosis, site unspecified; Z96.641 Presence of right artificial hip joint; Z96.649 Presence of unspecified artificial hip joint; Z79.51 Long term (current) use of inhaled steroids; Z87.891 Personal history of nicotine dependence; Z79.899 Other long term (current) drug therapy
CPT/HCPCS: 36415; 71045; 80048; 80053; 80061; 80305; 81003; 82550; 82553; 83036; 83735; 83880; 84439; 84443; 84484; 85025; 85379; 93005; 93306; 94640; 99291; J0696; J1160; J7060; J7512; J7626

== ENCOUNTER 2024-02-21 11:20 | Emergency (ER) | payer MEDICARE, MEDICAID ==
[~2024-02-21] VITALS: Ht 160 cm; Wt 93.4 kg
[~2024-02-21 11:20] MED LIST changes: -AMLO10TA80 PO; +APIX5TAB PO; +ASCO-339 MT; +BUDE0.5A3 NEB; -CALC500T6 PO; -CELE100C97 PO; -EZET-55 PO; +FLUT1BLS3 INH; +FURO40TA5 PO; +HYDR-4009 PO; -HYDR25TA; +LEVO-65 MT; +LOSA-412 PO; -OMEP20TA15 PO; +OXYB-52 PO; -OXYC-662 PO; +P20 MT; +P20 PO; +POTA-205 MT; -PRO AIR; -TOPI25TA48 PO; -TRAM50TA3; -[UNRECOGNIZED DRUG - OTHER] PO
[2024-02-21 11:33] VITALS: BP 142/58; PULSE 57; RESP 16; TEMP 98.3; O2SAT 99
== END 2024-02-21 12:58 | disposition home or self-care (01) ==
LOC: ER 11:20
DX: S40.212A Abrasion of left shoulder, initial encounter (principal); M25.532 Pain in left wrist; J45.909 Unspecified asthma, uncomplicated; J44.9 Chronic obstructive pulmonary disease, unspecified; E11.9 Type 2 diabetes mellitus without complications; K21.9 Gastro-esophageal reflux disease without esophagitis; E78.00 Pure hypercholesterolemia, unspecified; F19.90 Other psychoactive substance use, unspecified, uncomplicated; I49.8 Other specified cardiac arrhythmias; I11.0 Hypertensive heart disease with heart failure; X58.XXXA Exposure to other specified factors, initial encounter; Y93.89 Activity, other specified; Y92.89 Other specified places as the place of occurrence of the external cause; Y99.8 Other external cause status; Z98.890 Other specified postprocedural states
CPT/HCPCS: 73110; 99283